=== PATIENT | male | born 1975 | race Hispanic/Latino ===

== ENCOUNTER 2023-09-25 16:32 | Emergency (ER) | payer OTHER ==
[~2023-09-25] VITALS: Ht 152.4 cm; Wt 70.2 kg
[2023-09-25] MEDS ORDERED: METHOCARBAMOL500 MG PO (18:58)
[2023-09-25] MEDS ORDERED: NAPROXEN500 MG PO (18:58)
[2023-09-25 19:24] VITALS: BP 155/99
== END 2023-09-25 19:24 | disposition home or self-care (01) | DRG 563 ==
LOC: ED 16:32
DX: S39.012A Strain of muscle, fascia and tendon of lower back, initial encounter (principal); V53.5XXA Driver of pick-up truck or van injured in collision with car, pick-up truck or van in traffic accident, initial encounter